=== PATIENT | male | born 1965 | race Caucasian/White ===

== ENCOUNTER 2019-05-01 10:35 | Emergency (ER) | payer MEDICARE | END 2019-05-01 11:22 | disposition home or self-care (01) | LOC: ERS 10:35 | DX: R09.81 Nasal congestion (principal); I10 Essential (primary) hypertension; J44.9 Chronic obstructive pulmonary disease, unspecified; F31.9 Bipolar disorder, unspecified; Z87.891 Personal history of nicotine dependence | CPT/HCPCS: 99281 ==